=== PATIENT | male | born 1965 | race Caucasian/White ===

== ENCOUNTER → 2021-05-08 10:41 | Outpatient (CLI) | payer OTHER, MEDICAID, SELFPAY ==
[2021-05-08 19:05] LABS: HEMOLYSIS 26 (0-50); Iron 122 ug/dL (49-181)
[2021-05-08 19:07] LABS: Add Manual Diff / Slide Review NO; Basophils Absolute Auto 0 /uL (0-100); Basophils Percent Auto 0.5 % (0-2); Eosinophils Absolute Auto 100 /uL (0-450); Eosinophils Percent Auto 2.5 % (2-4); Hematocrit 34.8 % (41-53); Lymphocytes Absolute Auto 1100 /uL (1100-4500); Lymphocytes Percent Auto 24.9 % (25-40); Mean Corpuscular HGB Conc 34.4 % (30-36); Mean Corpuscular Hemoglobin 32.3 PG (26-34); Mean Corpuscular Volume 93.8 fL (80-100); Monocytes Absolute Auto 400 /uL (0-900); Monocytes Percent Auto 9.7 % (3-14); Neutrophils Absolute Auto 2700 /uL (1500-7000); Neutrophils Percent Auto 62.4 % (50-75); Platelet Count 98 X10^3/uL (150-400); Red Blood Cell Count 3.71 X10^6/uL (4.5-5.9); White Blood Cell Count 4.4 X10^3/uL (4.5-11.0)
[2021-05-08 19:09] LABS: Alanine Aminotransferase 40 IU/L (<50); Albumin 4.4 g/dL (3.5-5.0); Albumin Globulin Ratio 1.4 (1.0-2.8); Alkaline Phosphatase 70 U/L (38-126); Aspartate Aminotransferase 53 IU/L (17-59); BUN Creatinine Ratio 16.5 (6-22); Bilirubin Total 0.5 mg/dL (0.2-1.3); Blood Urea Nitrogen 16 mg/dL (9-20); Calcium 9.7 mg/dL (8.4-10.2); Carbon Dioxide 28 mmol/L (22-32); Chloride 103 mmol/L (98-107); Cholesterol 255 mg/dL (140-199); Estimated Glomerular Filt Rate > 60.0 mL/min (>60); Globulin 3.1 g/dL (1.7-4.1); Glucose 124 mg/dL (70-100); HDL Cholesterol 43 mg/dL (40-60); HEMOLYSIS < 15 (0-50); LDL Cholesterol Calculated 178 mg/dL (<100); Potassium 4.2 mmol/L (3.4-5.1); Sodium 138 mmol/L (137-145); Total Protein 7.5 g/dL (6.3-8.2); Triglycerides 172 mg/dL (35-150)
[2021-05-08 19:18] LABS: Percent Iron Saturation 41 % (20-50); Total Iron Binding Capacity 298 ug/dL (261-462); Transferrin 238 mg/dL (206-381)
[2021-05-08 19:38] LABS: Prostate Specific Antigen 8.05 ng/mL (0.10-4.00)
[2021-05-08 19:42] LABS: Ferritin 225 ng/mL (18-464)
== END ==
PROVIDERS: PCP Family Medicine; Visit Provider Family Medicine
DX: A60.02 Herpesviral infection of other male genital organs (principal); E83.110 Hereditary hemochromatosis; F41.8 Other specified anxiety disorders; Z85.46 Personal history of malignant neoplasm of prostate
CPT/HCPCS: 80053; 80061; 82728; 83540; 83550; 84153; 85025

== ENCOUNTER → 2021-10-31 11:12 | Outpatient (CLI) | payer OTHER, MEDICAID, SELFPAY ==
[2021-10-31 19:06] LABS: Add Manual Diff / Slide Review NO; Basophils Absolute Auto 0 /uL (0-100); Basophils Percent Auto 0.4 % (0-2); Eosinophils Absolute Auto 200 /uL (0-450); Eosinophils Percent Auto 3.2 % (2-4); Hematocrit 43.9 % (41-53); Hemoglobin 15.6 g/dL (13.5-17.5); Lymphocytes Absolute Auto 2100 /uL (1100-4500); Lymphocytes Percent Auto 29.3 % (25-40); Mean Corpuscular HGB Conc 35.4 % (30-36); Mean Corpuscular Hemoglobin 32.6 PG (26-34); Monocytes Absolute Auto 700 /uL (0-900); Monocytes Percent Auto 9.2 % (3-14); Neutrophils Absolute Auto 4100 /uL (1500-7000); Neutrophils Percent Auto 57.9 % (50-75); Platelet Count 268 X10^3/uL (150-400); Red Blood Cell Count 4.78 X10^6/uL (4.5-5.9); Red Cell Distribution Width 12.9 % (11.6-14.8); White Blood Cell Count 7.1 X10^3/uL (4.5-11.0)
[2021-10-31 19:23] LABS: Alanine Aminotransferase 46 IU/L (<50); Albumin 4.4 g/dL (3.5-5.0); Albumin Globulin Ratio 1.6 (1.0-2.8); Alkaline Phosphatase 70 U/L (38-126); Aspartate Aminotransferase 40 IU/L (17-59); BUN Creatinine Ratio 17.3 (6-22); Bilirubin Total 0.7 mg/dL (0.2-1.3); Blood Urea Nitrogen 17 mg/dL (9-20); Calcium 9.5 mg/dL (8.4-10.2); Carbon Dioxide 27 mmol/L (22-32); Chloride 102 mmol/L (98-107); Estimated Glomerular Filt Rate > 60.0 mL/min (>60); Globulin 2.8 g/dL (1.7-4.1); Glucose 97 mg/dL (70-100); HEMOLYSIS < 15 (0-50); Potassium 4.2 mmol/L (3.4-5.1); Sodium 137 mmol/L (137-145); Total Protein 7.2 g/dL (6.3-8.2)
[2021-10-31 19:45] LABS: Prostate Specific Antigen 10.9 ng/mL (0.10-4.00)
[2021-10-31 19:49] LABS: Ferritin 219 ng/mL (18-464)
[2021-10-31 20:21] LABS: Folate > 20.0 ng/mL (2.76-20.0); Vitamin B12 453 pg/mL (239-931)
== END ==
PROVIDERS: PCP Family Medicine; Referring Provider Family Medicine; Visit Provider Family Medicine
DX: E83.110 Hereditary hemochromatosis (principal); F41.8 Other specified anxiety disorders; Z85.46 Personal history of malignant neoplasm of prostate
CPT/HCPCS: 80053; 82607; 82728; 82746; 84153; 85025

== ENCOUNTER → 2021-12-06 12:35 | Outpatient (CLI) | payer OTHER, MEDICAID, SELFPAY ==
[2021-12-06 19:18] LABS: Prostate Specific Antigen 8.46 ng/mL (0.10-4.00)
== END ==
PROVIDERS: PCP Physician Assistant; Visit Provider Urology
DX: C61 Malignant neoplasm of prostate (principal); R97.20 Elevated prostate specific antigen [PSA]
CPT/HCPCS: 84153

== ENCOUNTER → 2021-12-08 15:02 | Outpatient (CLI) | payer OTHER, MEDICAID, SELFPAY ==
--- NOTE | 2021-12-08 15:04 | DI.MRI.S_ITS ---
PROCEDURE: MR PELIS WO/W CON INDICATIONS: Prostate cancer TECHNIQUE: Coronal HASTE, axial T1 FSE with fat saturation, 3-plane nonbreath-hold T2 FSE. After the administration of contrast, dynamic axial, delayed axial and coronal VIBE or 2-D FLASH with fat saturation through the pelvis. Optional diffusion weighted imaging and ADC may be performed. COMPARISON: None. FINDINGS: Image quality: Diffusion weighted and dynamic contrast enhanced images are diagnostic. Prostate: Gland size is 5.2 x 4.3 x 3 cm; ellipsoid gland volume is 35 mL. There is median lobe hypertrophy. A few BPH nodules. No foci of intrinsic T1 hyperintensity to suggest hemorrhage. Lesion size(s): Lesion 1: 0.8 cm, (4/10). Lesion 2: 0.8 cm, (4/10). Lesion location(s) (sector): Lesion 1: Right base peripheral zone Lesion 2: Left base peripheral zone Note these observations appear symmetric. Lesion description: Lesion 1: Oval Lesion 2: Oval T2 weighted imaging (T2WI) morphology score: Lesion 1: 3 Lesion 2: 3 Diffusion weighted imaging (DWI) morphology score: Lesion 1: 4 Lesion 2: 4 Dynamic contrast enhancement (DCE): Lesion 1: Present Lesion 2: Present Lesion PI-RADS score: Lesion 1: PI-RADS 4 Lesion 2: PI-RADS 4 Genitourinary system: Bladder wall thickness is normal. Distal ureters are non distended. Bowel and peritoneum: No pathologic free pelvic fluid. Inferior colon and small bowel loops are normal in caliber. Nodes and vessels: No pelvic or inguinal adenopathy by size criteria. Iliac vessels are normal in caliber. Soft tissues: No inguinal hernias. Bones: Marrow demonstrates normal overall signal, without lesions to suggest metastases. IMPRESSION: 1. Prostatomegaly with median lobe hypertrophy. 2. Right base peripheral zone observation measuring 0.8 cm. PI-RADS 4. 3. Left base peripheral zone observation measuring 0.8 cm. PI-RADS 4. Note: The symmetric appearance of these observations somewhat lessen suspicion. 4. No enlarged lymph nodes. Dictated by: Branden Cat M.D. on 12/10/2021 at 9:12 Approved by: Branden Cat M.D. on 12/10/2021 at 9:26
== END ==
PROVIDERS: PCP Physician Assistant; Referring Provider Urology; Visit Provider Urology
DX: C61 Malignant neoplasm of prostate (principal); R97.20 Elevated prostate specific antigen [PSA]
CPT/HCPCS: 72197; A9579

== ENCOUNTER → 2022-03-06 09:00 | Outpatient (CLI) | payer OTHER, MEDICAID, SELFPAY ==
[2022-03-06 20:24] LABS: Prostate Specific Antigen 10.4 ng/mL (0.10-4.00)
== END ==
PROVIDERS: PCP Physician Assistant; Visit Provider Urology
DX: C61 Malignant neoplasm of prostate (principal); R97.20 Elevated prostate specific antigen [PSA]
CPT/HCPCS: 84153

== ENCOUNTER → 2022-04-26 13:25 | Outpatient (CLI) | payer OTHER, MEDICAID, SELFPAY | PROVIDERS: PCP Physician Assistant; Visit Provider Urology | DX: R97.20 Elevated prostate specific antigen [PSA] (principal) | CPT/HCPCS: 84153 ==

== ENCOUNTER → 2022-05-09 14:29 | Outpatient (CLI) | payer OTHER, MEDICAID, SELFPAY ==
[2022-05-09 20:29] LABS: Appearance Urine UA CLEAR; Bilirubin Urine UA NEGATIVE (NEGATIVE); Color Urine UA YELLOW; Glucose Urine UA NEGATIVE (Negative); Ketones Urine UA NEGATIVE (NEGATIVE); Leukocyte Esterase Urine UA NEGATIVE (NEGATIVE); Nitrite Urine UA NEGATIVE (Negative); Occult Blood Urine UA TRACE-INTACT (Negative); Protein Urine UA NEGATIVE (Negative); Urobilinogen Urine UA 0.2 E.U./dL (0.2)
== END ==
PROVIDERS: PCP Physician Assistant; Referring Provider Urology; Visit Provider Urology
DX: R31.21 Asymptomatic microscopic hematuria (principal)
CPT/HCPCS: 81003

== ENCOUNTER → 2022-05-16 11:42 | Outpatient (CLI) | payer OTHER, MEDICAID, SELFPAY ==
[2022-05-16 20:50] LABS: Appearance Urine UA CLEAR; Bilirubin Urine UA NEGATIVE (NEGATIVE); Color Urine UA YELLOW; Glucose Urine UA NEGATIVE (Negative); Ketones Urine UA NEGATIVE (NEGATIVE); Leukocyte Esterase Urine UA TRACE (NEGATIVE); Nitrite Urine UA NEGATIVE (Negative); Occult Blood Urine UA TRACE-LYSED (Negative); Protein Urine UA NEGATIVE (Negative); Specific Gravity Urine UA 1.015 (1.000-1.035); Urobilinogen Urine UA 0.2 E.U./dL (0.2)
[2022-05-16 21:38] LABS: Bacteria Urine Occasional (0-1); Culture Indicated Urine Specimen Cultured; Mucus Urine 1+ (Negative); RBC Urine 5-10/HPF (0-5/HPF); WBC Urine 5-10/HPF (0-5/HPF)
== END ==
PROVIDERS: PCP Physician Assistant; Visit Provider Urology
DX: R31.21 Asymptomatic microscopic hematuria (principal)
CPT/HCPCS: 81003; 81015; 87086

== ENCOUNTER → 2022-05-30 14:34 | Outpatient (CLI) | payer OTHER, MEDICAID, SELFPAY ==
[2022-05-30 23:09] LABS: Appearance Urine UA CLEAR; Bilirubin Urine UA NEGATIVE (NEGATIVE); Color Urine UA YELLOW; Glucose Urine UA NEGATIVE (Negative); Ketones Urine UA NEGATIVE (NEGATIVE); Leukocyte Esterase Urine UA NEGATIVE (NEGATIVE); Nitrite Urine UA NEGATIVE (Negative); Occult Blood Urine UA NEGATIVE (Negative); Protein Urine UA NEGATIVE (Negative); Specific Gravity Urine UA <=1.005 (1.000-1.035); Urobilinogen Urine UA 0.2 E.U./dL (0.2); pH Urine UA 7.5 (4.5-8.0)
== END ==
PROVIDERS: PCP Physician Assistant; Visit Provider Urology
DX: R31.21 Asymptomatic microscopic hematuria (principal)
CPT/HCPCS: 81003

== ENCOUNTER → 2022-07-23 09:00 | Outpatient (CLI) | payer OTHER, MEDICAID, SELFPAY ==
--- NOTE | 2022-07-23 09:02 | DI.NM.S_ITS ---
PROCEDURE: NM BONE SCAN WHOLE BODY RADIOPHARMACEUTICAL: 19.8 mCi Tc-99m MDP IV. INDICATIONS: Prostate cancer TECHNIQUE: Delayed whole-body scintigrams were obtained approximately 3-4 hours after intravenous injection of radiotracer. Anterior and posterior views were acquired from vertex to feet. Additional left and right oblique views of the pelvis were obtained. COMPARISON: None. FINDINGS: Excreted radiotracer is seen within urinary bladder and urethra. Small focus of asymmetrically increased uptake involving left posterior medial 9th rib is noted near costal vertebral junction. Increased uptake in bilateral acromioclavicular joints are seen worse on the right side suggestive of right worse than left bilateral acromioclavicular joint osteoarthritis. Symmetric and mildly increased uptake in bilateral sternal clavicular joints, hip, knee , ankle and midfoot joints are seen likely represent osteoarthritic changes. IMPRESSION: 1. Subtle focal asymmetrically increased radiotracer uptake in posterior medial left 9th rib, which could represent early metastatic disease in this area although no discrete lesion is seen on CT of abdomen and pelvis study performed on the same day. CT and nuclear medicine bone scan follow-up is recommended. 2. No other area of abnormal increase uptake is seen to suggest bony metastasis. 3. 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 Dictated by: Liban Pichardo M.D. on 07/23/2022 at 13:35 Approved by: Liban Pichardo M.D. on 07/23/2022 at 14:00
--- NOTE | 2022-07-23 11:10 | DI.CT.S_ITS ---
PROCEDURE: CT ABDOMEN PELVIS W CON INDICATIONS: Prostate cancer TECHNIQUE: After the administration of oral and IV contrast, axial sections were acquired from the lung bases to the pubic symphysis. Coronal and sagittal reformats were performed. For radiation dose reduction, the following was used: automated exposure control, adjustment of mA and/or kV according to patient size. COMPARISON: [facility], [place], NM BONE SCAN WHOLE BODY, 07/23/2022, 11:30. [facility], MR, MR PELVIS WO/W CON, 12/08/2021, 15:09. FINDINGS: Image quality: Excellent. Lung bases: Unremarkable. Heart: No significant findings. ABDOMEN: Liver: Unremarkable. Gallbladder: Unremarkable. Biliary ducts: Unremarkable. Pancreas: Unremarkable. Spleen: Unremarkable. Incidental note is made of an accessory splenule along the anterior aspect of the primary spleen. Adrenal Glands: Unremarkable. Kidneys and Ureters: Unremarkable. Stomach and Bowel: Stomach, small bowel loops, and colon are unremarkable. A normal appendix is incidentally noted. Peritoneum: No abnormal intraperitoneal fluid. No free air. Ventral Wall: No hernia. Abdominal Nodes: No retroperitoneal or mesenteric adenopathy by size criteria. Vessels: Aorta and inferior vena cava are normal in size. PELVIS: Pelvic Organs: Prostate is mildly prominent. Bladder: Unremarkable. Pelvic Nodes: No enlarged lymph nodes. Miscellaneous: No inguinal hernias are seen. Bones: In this patient with this given history, scrutiny is given to sclerotic bony lesions. None can be seen. Focal L5-S1 degenerative change is seen. Milder degenerative changes are seen elsewhere. IMPRESSION: No enlarged or suspicious appearing lymph nodes are seen. No sclerotic bony lesions are seen. Incidental note is made of: Accessory splenule Focal L5-S1 degenerative change Dictated by: Garcia Copeland M.D. on 07/23/2022 at 13:37 Approved by: Garcia Copeland M.D. on 07/23/2022 at 13:39
== END ==
PROVIDERS: PCP Physician Assistant; Referring Provider Urology; Visit Provider Urology
DX: C61 Malignant neoplasm of prostate (principal); R97.20 Elevated prostate specific antigen [PSA]; M47.817 Spondylosis without myelopathy or radiculopathy, lumbosacral region; Q89.09 Congenital malformations of spleen
CPT/HCPCS: 36415; 74177; 78306; 84153; A9503; Q9967

== ENCOUNTER → 2022-07-23 13:02 | Outpatient (CLI) | payer OTHER, MEDICAID, SELFPAY ==
[2022-07-23 14:36] LABS: Prostate Specific Antigen 13.8 ng/mL (0.10-4.00)
== END ==
PROVIDERS: PCP Physician Assistant; Referring Provider Urology; Visit Provider Urology
DX: C61 Malignant neoplasm of prostate (principal); R97.20 Elevated prostate specific antigen [PSA]
CPT/HCPCS: 36415; 84153

== ENCOUNTER → 2022-12-02 11:12 | Outpatient (CLI) | payer OTHER, MEDICAID, SELFPAY ==
[2022-12-02 19:47] LABS: Prostate Specific Antigen 7.01 ng/mL (0.10-4.00)
== END ==
PROVIDERS: PCP Physician Assistant; Visit Provider Urology
DX: R97.20 Elevated prostate specific antigen [PSA] (principal)
CPT/HCPCS: 84153

== ENCOUNTER → 2022-12-31 08:51 | Outpatient (CLI) | payer OTHER, MEDICAID, SELFPAY ==
[2023-01-03 10:11] LABS: Prostate Specific Antigen 2.15 ng/mL (0.10-4.00)
== END ==
PROVIDERS: PCP Physician Assistant; Visit Provider Urology
DX: C61 Malignant neoplasm of prostate (principal)
CPT/HCPCS: 84153

== ENCOUNTER → 2023-02-04 13:29 | Outpatient (CLI) | payer OTHER, MEDICAID, SELFPAY ==
[2023-02-04 20:27] LABS: Prostate Specific Antigen < 0.064 ng/mL (0.10-4.00)
== END ==
PROVIDERS: PCP Physician Assistant; Visit Provider Urology
DX: R39.9 Unspecified symptoms and signs involving the genitourinary system (principal)
CPT/HCPCS: 84153

== ENCOUNTER → 2023-04-14 12:00 | Outpatient (CLI) | payer OTHER, MEDICAID, SELFPAY ==
[2023-04-14 20:08] LABS: Prostate Specific Antigen < 0.064 ng/mL (0.10-4.00)
== END ==
PROVIDERS: PCP Physician Assistant; Visit Provider Urology
DX: C61 Malignant neoplasm of prostate (principal); R97.20 Elevated prostate specific antigen [PSA]
CPT/HCPCS: 84153

== ENCOUNTER → 2023-05-29 09:21 | Outpatient (CLI) | payer OTHER, MEDICAID, SELFPAY ==
[2023-05-29 20:24] LABS: Alanine Aminotransferase 35 IU/L (<50); Albumin 4.1 g/dL (3.5-5.0); Albumin Globulin Ratio 1.4 (1.0-2.8); Alkaline Phosphatase 74 U/L (38-126); Aspartate Aminotransferase 35 IU/L (17-59); BUN Creatinine Ratio 17.3 (6-22); Bilirubin Total 0.6 mg/dL (0.2-1.3); Blood Urea Nitrogen 18 mg/dL (9-20); Calcium 9.2 mg/dL (8.4-10.2); Carbon Dioxide 29 mmol/L (22-32); Chloride 103 mmol/L (98-107); Cholesterol 192 mg/dL (140-199); Estimated Glomerular Filt Rate > 60 mL/min (>60); Globulin 2.9 g/dL (1.7-4.1); Glucose 105 mg/dL (70-100); HDL Cholesterol 41 mg/dL (40-60); HEMOLYSIS 17 (0-50); LDL Cholesterol Calculated 108 mg/dL (<100); Potassium 4.2 mmol/L (3.4-5.1); Sodium 137 mmol/L (137-145); Triglycerides 215 mg/dL (35-150)
== END ==
PROVIDERS: PCP Family Medicine; Visit Provider Family Medicine
DX: E78.5 Hyperlipidemia, unspecified (principal); R03.0 Elevated blood-pressure reading, without diagnosis of hypertension
CPT/HCPCS: 80053; 80061

== ENCOUNTER → 2023-06-30 11:59 | Outpatient (CLI) | payer OTHER, MEDICAID, SELFPAY ==
[2023-06-30 13:26] LABS: Prostate Specific Antigen < 0.064 ng/mL (0.10-4.00)
== END ==
PROVIDERS: PCP Family Medicine; Referring Provider Urology; Visit Provider Urology
DX: C61 Malignant neoplasm of prostate (principal); R39.9 Unspecified symptoms and signs involving the genitourinary system; R97.20 Elevated prostate specific antigen [PSA]
CPT/HCPCS: 36415; 84153

== ENCOUNTER → 2023-09-25 13:24 | Outpatient (CLI) | payer OTHER, MEDICAID, SELFPAY ==
[2023-09-25 19:34] LABS: Prostate Specific Antigen < 0.064 ng/mL (0.10-4.00)
== END ==
PROVIDERS: PCP Family Medicine; Visit Provider Urology
DX: C61 Malignant neoplasm of prostate (principal)
CPT/HCPCS: 84153

== ENCOUNTER → 2023-12-24 12:03 | Outpatient (CLI) | payer OTHER, MEDICAID, SELFPAY ==
[2023-12-24 20:24] LABS: Prostate Specific Antigen < 0.064 ng/mL (0.10-4.00)
== END ==
PROVIDERS: PCP Family Medicine; Visit Provider Urology
DX: C61 Malignant neoplasm of prostate (principal)
CPT/HCPCS: 84153

== ENCOUNTER → 2024-02-18 10:21 | Outpatient (CLI) | payer OTHER, MEDICAID, SELFPAY ==
[2024-02-18 19:48] LABS: BUN Creatinine Ratio 21.1 (6-22); Blood Urea Nitrogen 23 mg/dL (9-20); Calcium 9.5 mg/dL (8.4-10.2); Carbon Dioxide 27 mmol/L (22-32); Chloride 109 mmol/L (98-107); Cholesterol 232 mg/dL (140-199); Estimated Glomerular Filt Rate > 60 mL/min (>60); Glucose 96 mg/dL (70-100); HDL Cholesterol 41 mg/dL (40-60); HEMOLYSIS < 15 (0-50); LDL Cholesterol Calculated 163 mg/dL (<100); Potassium 4.4 mmol/L (3.4-5.1); Sodium 139 mmol/L (137-145); Triglycerides 141 mg/dL (35-150)
[2024-02-18 21:05] LABS: Urine N gonorrhoeae NOT DETECTED
[2024-02-18 21:06] LABS: Urine Chlamydia NOT DETECTED
[2024-02-19 18:07] LABS: Hepatitis B Surface Antigen NEGATIVE s/c (NEGATIVE)
[2024-02-19 18:19] LABS: HIV 1 & 2 Ab/Ag 4th Gen Combo NEGATIVE (NEGATIVE); Hep C Virus Ab w/Reflex Quant NEGATIVE s/c (NEGATIVE)
[2024-02-20 01:09] LABS: Hepatitis B Core Antibody Negative (Negative)
[2024-02-20 06:53] LABS: Hepatitis B Surf Ab Qualitativ Reactive (.)
== END ==
PROVIDERS: PCP Family Medicine; Visit Provider Family Medicine
DX: R73.09 Other abnormal glucose (principal); E78.5 Hyperlipidemia, unspecified; Z11.4 Encounter for screening for human immunodeficiency virus [HIV]; Z71.89 Other specified counseling
CPT/HCPCS: 80048; 80061; 86704; 86706; 86803; 87340; 87389; 87491; 87591

== ENCOUNTER → 2024-04-21 12:04 | Outpatient (CLI) | payer OTHER, MEDICAID, SELFPAY ==
[2024-04-21 20:14] LABS: Prostate Specific Antigen < 0.064 ng/mL (0.10-4.00)
== END ==
PROVIDERS: PCP Family Medicine; Visit Provider Urology
DX: C61 Malignant neoplasm of prostate (principal)
CPT/HCPCS: 84153

== ENCOUNTER → 2024-07-08 11:42 | Outpatient (CLI) | payer OTHER, MEDICAID, SELFPAY | LOC: LAB 11:44 | PROVIDERS: PCP Family Medicine; Visit Provider Physician Assistant Medical | DX: J34.89 Other specified disorders of nose and nasal sinuses (principal) | CPT/HCPCS: 87070; 87075; 87077; 87147; 87205 ==

== ENCOUNTER → 2024-07-28 13:36 | Outpatient (CLI) | payer OTHER, MEDICAID, SELFPAY ==
[2024-07-28 20:15] LABS: Prostate Specific Antigen < 0.064 ng/mL (0.10-4.00)
[2024-07-28 20:43] LABS: Urine N gonorrhoeae NOT DETECTED
[2024-07-28 21:18] LABS: Urine Chlamydia NOT DETECTED
[2024-07-29 15:25] LABS: Hep C Virus Ab w/Reflex Quant NEGATIVE s/c (NEGATIVE)
[2024-07-31 21:09] LABS: HIV 1 RNA Non Reactive (Non Reactive); HIV 2 RNA Non Reactive (Non Reactive)
== END ==
PROVIDERS: Urology; PCP Family Medicine; Visit Provider Family Medicine
DX: Z29.89 Encounter for other specified prophylactic measures (principal); C61 Malignant neoplasm of prostate; R97.20 Elevated prostate specific antigen [PSA]
CPT/HCPCS: 84153; 86803; 87491; 87535; 87538; 87591

== ENCOUNTER → 2024-09-01 11:29 | Outpatient (CLI) | payer OTHER, MEDICAID, SELFPAY | PROVIDERS: PCP Family Medicine; Visit Provider Physician Assistant | DX: L08.9 Local infection of the skin and subcutaneous tissue, unspecified (principal); B95.62 Methicillin resistant Staphylococcus aureus infection as the cause of diseases classified elsewhere | CPT/HCPCS: 87070; 87075; 87077; 87147; 87186; 87205 ==

== ENCOUNTER → 2024-10-14 11:44 | Outpatient (CLI) | payer OTHER, SELFPAY | PROVIDERS: PCP Family Medicine; Visit Provider Physician Assistant Medical | DX: L08.9 Local infection of the skin and subcutaneous tissue, unspecified (principal); A49.02 Methicillin resistant Staphylococcus aureus infection, unspecified site; H01.009 Unspecified blepharitis unspecified eye, unspecified eyelid | CPT/HCPCS: 87070; 87205 ==

== ENCOUNTER → 2024-11-01 12:54 | Outpatient (CLI) | payer OTHER, SELFPAY ==
[2024-11-01 18:44] LABS: Add Manual Diff / Slide Review NO; Basophils Absolute Auto 0 /uL (0-100); Basophils Percent Auto 0.5 % (0-2); Eosinophils Absolute Auto 200 /uL (0-450); Eosinophils Percent Auto 2.7 % (2-4); Hematocrit 43.7 % (41-53); Hemoglobin 15.4 g/dL (13.5-17.5); Lymphocytes Absolute Auto 1800 /uL (1100-4500); Mean Corpuscular HGB Conc 35.1 % (30-36); Mean Corpuscular Hemoglobin 33.8 PG (26-34); Mean Corpuscular Volume 96.2 fL (80-100); Monocytes Absolute Auto 500 /uL (0-900); Monocytes Percent Auto 9.4 % (3-14); Neutrophils Absolute Auto 3200 /uL (1500-7000); Neutrophils Percent Auto 56.4 % (50-75); Platelet Count 250 X10^3/uL (150-400); Red Blood Cell Count 4.54 X10^6/uL (4.5-5.9); Red Cell Distribution Width 12.8 % (11.6-14.8); White Blood Cell Count 5.8 X10^3/uL (4.5-11.0)
[2024-11-01 19:44] LABS: Prostate Specific Antigen < 0.064 ng/mL (0.10-4.00)
== END ==
PROVIDERS: PCP Family Medicine; Visit Provider Family Medicine
DX: Z29.89 Encounter for other specified prophylactic measures (principal); Z11.4 Encounter for screening for human immunodeficiency virus [HIV]; C61 Malignant neoplasm of prostate; R97.20 Elevated prostate specific antigen [PSA]; R39.9 Unspecified symptoms and signs involving the genitourinary system; E78.5 Hyperlipidemia, unspecified; Z79.818 Long term (current) use of other agents affecting estrogen receptors and estrogen levels; Z71.89 Other specified counseling
CPT/HCPCS: 84153; 85025

== ENCOUNTER → 2025-01-26 13:26 | Outpatient (CLI) | payer OTHER, SELFPAY ==
[2025-01-26 19:04] LABS: Alanine Aminotransferase 49 IU/L (<50); Albumin 4.5 g/dL (3.5-5.0); Albumin Globulin Ratio 1.7 (1.0-2.8); Alkaline Phosphatase 91 U/L (38-126); Aspartate Aminotransferase 42 IU/L (17-59); BUN Creatinine Ratio 15.9 (6-22); Bilirubin Total 0.4 mg/dL (0.2-1.3); Blood Urea Nitrogen 18 mg/dL (9-20); Calcium 9.3 mg/dL (8.4-10.2); Carbon Dioxide 29 mmol/L (22-32); Chloride 102 mmol/L (98-107); Estimated Glomerular Filt Rate > 60 mL/min (>60); Globulin 2.6 g/dL (1.7-4.1); Glucose 138 mg/dL (70-100); HEMOLYSIS 17 (0-50); Sodium 139 mmol/L (137-145); Total Protein 7.1 g/dL (6.3-8.2)
[2025-01-26 19:20] LABS: LDL Cholesterol Direct 74 mg/dL (<100)
[2025-01-26 20:18] LABS: Urine N gonorrhoeae NOT DETECTED
[2025-01-26 20:44] LABS: Urine Chlamydia NOT DETECTED
[2025-01-27 15:52] LABS: HIV 1 & 2 Ab/Ag 4th Gen Combo NEGATIVE (NEGATIVE); Hep C Virus Ab w/Reflex Quant NEGATIVE s/c (NEGATIVE)
[2025-01-28 03:41] LABS: RPR Screen Non Reactive (Non Reactive)
== END ==
PROVIDERS: PCP Family Medicine; Visit Provider Family Medicine
DX: Z29.89 Encounter for other specified prophylactic measures (principal); Z11.4 Encounter for screening for human immunodeficiency virus [HIV]; Z71.89 Other specified counseling; E78.5 Hyperlipidemia, unspecified
CPT/HCPCS: 80053; 83721; 86592; 86803; 87389; 87491; 87591

== ENCOUNTER → 2025-02-07 14:29 | Outpatient (CLI) | payer OTHER, SELFPAY ==
[2025-02-07 18:55] LABS: HEMOLYSIS < 15 (0-50); Hemoglobin A1C% w Est Avg Glu 5.1 % (4.0-6.0); Iron 163 ug/dL (49-181)
[2025-02-07 19:10] LABS: Percent Iron Saturation 55 % (20-50); Total Iron Binding Capacity 297 ug/dL (261-462); Transferrin 245 mg/dL (206-381)
[2025-02-07 19:32] LABS: Ferritin 116 ng/mL (18-464)
[2025-02-07 19:42] LABS: Prostate Specific Antigen < 0.064 ng/mL (0.10-4.00)
== END ==
PROVIDERS: PCP Family Medicine; Referring Provider Urology; Visit Provider Urology
DX: R97.20 Elevated prostate specific antigen [PSA] (principal); C61 Malignant neoplasm of prostate; Z14.8 Genetic carrier of other disease
CPT/HCPCS: 82728; 83036; 83540; 83550; 84153

== ENCOUNTER → 2025-04-21 11:33 | Outpatient (CLI) | payer OTHER, SELFPAY ==
[2025-04-21 21:35] LABS: Prostate Specific Antigen < 0.064 ng/mL (0.10-4.00)
== END ==
PROVIDERS: PCP Family Medicine; Visit Provider Urology
DX: C61 Malignant neoplasm of prostate (principal)
CPT/HCPCS: 84153

== ENCOUNTER → 2025-07-25 14:40 | Outpatient (CLI) | payer BC, SELFPAY ==
[2025-07-25 20:24] LABS: Urine N gonorrhoeae NOT DETECTED
[2025-07-25 20:31] LABS: Urine Chlamydia NOT DETECTED
[2025-07-26 05:10] LABS: Hepatitis A Antibody IgM Negative (Negative); Hepatitis B Core Antibody IgM Negative (Negative); Hepatitis C Antibody Non Reactive (Non Reactive)
[2025-07-26 15:14] LABS: HIV 1 & 2 Ab/Ag 4th Gen Combo NEGATIVE (NEGATIVE)
== END ==
PROVIDERS: PCP Family Medicine; Visit Provider Family Medicine
DX: C61 Malignant neoplasm of prostate (principal); Z11.4 Encounter for screening for human immunodeficiency virus [HIV]; Z71.89 Other specified counseling
CPT/HCPCS: 80074; 84153; 86780; 87389; 87491; 87591